=== PATIENT | female | born 1960 | race Caucasian/White ===

== ENCOUNTER → 2023-06-24 | Outpatient (CLI) | payer BC ==
[~2023-06-24] MED LIST: COLA100C2 OR; CYMB1CAP5 OR; FLEXERIL OR; IBUP600T OR; NEUR300C OR; PREG50CA OR; TRAM50TA2 OR; ULTRTA OR
== END ==
LOC: M SLEEP 18:55
PROVIDERS: ATTEND Physician Assistant
DX: R40.0 Somnolence (principal)